=== PATIENT | female | born 1995 | race Caucasian/White ===

== ENCOUNTER 2024-05-02 10:04 | Outpatient (REF) | payer OTHER, SELFPAY ==
--- NOTE | ~2024-05-02 | US_ITS ---
EXAMINATION: US PELVIS CLINICAL INFORMATION: Pelvic pain left lower quadrant, last menstrual period 2 1/2 weeks ago COMPARISON: None available. TECHNIQUE: Ultrasound of the pelvis is performed using both transabdominal and transvaginal transducers along with Doppler. Transvaginal imaging is performed due to inadequate visualization transabdominally. FINDINGS: The uterus is anteverted and measures 5.0 x 3.0 x 4.5 cm. Endometrial thickness is 6 mm. No significant free fluid. Small ovoid echogenic structure at the internal os measures 0.6 x 0.6 x 0.7 cm, possibly representing residual clot versus polyp. Right ovary measures 2.1 x 2.5 x 2.1 cm, volume 5.9 mL. Left ovary measures 3.3 x 1.9 x 2.8 cm, volume 7.0 mL. Limited visualization of left ovary due to bowel gas. A 2.7 x 1.5 x 2.2 cm left ovarian thick walled complex cyst is characteristic of a corpus luteum. US/US pelvic and transvaginal IMPRESSION: 1. Small ovoid echogenic structure at the internal os measures 0.7 cm, possibly representing residual clot versus polyp. Correlation with clinical exam and gynecologic consultation recommended to determine further management. Recommend follow-up ultrasound in 4-6 weeks. 2. A 2.7 x 1.5 x 2.2 cm left ovarian thick walled complex cyst is characteristic of a corpus luteum. This study was presented today May 03, 2024 for interpretation. Stat results provided at this time as requested by referring provider. Electronically signed by: Jackie Wilburn MD 05/03/2024 06:41 AM EDT
== END 2024-05-02 10:05 | disposition home or self-care (01) ==
LOC: HO.UMASIMG 10:04
PROVIDERS: Visit Provider Nurse Practitioner Family
DX: R10.2 Pelvic and perineal pain (principal); N76.0 Acute vaginitis
CPT/HCPCS: 76830; 76856

== ENCOUNTER 2024-06-06 06:42 | Outpatient (REF) | payer OTHER, SELFPAY ==
--- NOTE | ~2024-06-06 | US_ITS ---
EXAMINATION: US PELVIS CLINICAL INFORMATION: History of left ovarian cyst and echogenic structure in internal os, last menstrual period 3 weeks prior. COMPARISON: None available. TECHNIQUE: Ultrasound of the pelvis is performed using both transabdominal and transvaginal transducers along with Doppler. Transvaginal imaging is performed due to inadequate visualization transabdominally. FINDINGS: EXAMINATION: US PELVIS CLINICAL INFORMATION: Pelvic pain left lower quadrant, last menstrual period 2 1/2 weeks ago COMPARISON: 05/02/2024 TECHNIQUE: Ultrasound of the pelvis is performed using both transabdominal and transvaginal transducers along with Doppler. Transvaginal imaging is performed due to inadequate visualization transabdominally. FINDINGS: The uterus is anteverted and measures 6.1 x 3.2 x 4.6 cm. Endometrial thickness is 12 mm. No significant free fluid. Right ovary measures 2.8 x 1.8 x 2.3 cm, volume of 5.8 mL and is unremarkable. Left ovary measures 3.5 x 2.0 x 2.0 cm, volume 7.61 mL. A 1.7 x 1.4 x 1.0 cm complex left ovarian cyst with diffuse internal echoes, possibly a corpus luteum. Previous exam demonstrated a 2.7 x 1.5 x 2.2 cm complex left ovarian cyst. Previously identified 0.7 cm echogenic structure at the internal os, possibly representing residual clot versus polyp, is not clearly visualized on the current exam. US/US pelvic and transvaginal IMPRESSION: 1. A 1.7 cm complex left ovarian cyst with diffuse internal echoes, possibly a corpus luteum. Previous exam demonstrated a 2.7 cm complex left ovarian cyst. 2. Previously identified 0.7 cm echogenic structure at the internal os, possibly representing residual clot versus polyp, is not clearly visualized on the current exam. 3. Endometrial thickness is 12 mm. 4. Correlation with clinical exam and gynecologic consultation recommended to determine management. This study was presented today June 07, 2024 for interpretation. Stat results provided at this time as requested by referring provider. Electronically signed by: Jackie Wilburn MD 06/07/2024 08:17 AM [facility] [place]
== END 2024-06-06 06:43 | disposition home or self-care (01) ==
LOC: HO.UMASIMG 06:42
PROVIDERS: Visit Provider Nurse Practitioner Family
DX: N83.202 Unspecified ovarian cyst, left side (principal)
CPT/HCPCS: 76830; 76856

== ENCOUNTER 2024-07-11 08:51 | Outpatient (REF) | payer OTHER, SELFPAY | END 2024-07-11 08:52 | disposition home or self-care (01) | LOC: HO.UMASIMG 08:51 | PROVIDERS: Visit Provider Nurse Practitioner Family | DX: Z13.89 Encounter for screening for other disorder (principal) ==